=== PATIENT | male | born 1960 | race Caucasian/White ===

== ENCOUNTER 2021-11-08 05:12 | Inpatient (IN) ==
--- NOTE | 2021-11-07 11:10 | Anesthesiology Consultation ---
Date of Service November 07, 2021 Assessment & Plan (1) Encounter for pre-operative examination: - Pt requiring admission post-operatively. Plan for recheck with [facility] [employer] AM DOS due to possibility that patient may have a roommate. OR aware. [employer] order placed. - COVID screening: Per assessment on 11/07: No known COVID-19 positive contacts or current COVID-19 related symptoms. Travel screen negative. Patient vaccinated. Preop Covid test done 11/06 ([place]) is negative (surgeon did write letter of medical necessity indicating need for surgery to proceed as scheduled if unable to have preop Covid testing done but patient did end up having preop Covid test 11/06 which was negative). - Preop testing: Multiple attempts to inquire from surgeon's office if preop testing obtained- no response. Patient denies recent labs/EKG during PAT RN interview today. Will order CBC, BMP, coags, EKG for AM DOS. Chart Review Chart Review: Acceptable Risk for Surgery (pending preop labs AM DOS) and Patient NOT seen in Pre Admission Testing History Surgery Operation Date: 11/08/21 07:15 Proposed Procedures p Right Ankle Open Reduction Internal Fixation Bimalleolar Fracture, Open Reduction and Internal Fixation Syndesmotic Disruption of Ankle - Jonathan Sky DO Height/Weight Height: 5 ft 11 in Weight: 90.718 kg Allergies Allergy/AdvReac Type Severity Reaction Status Date / Time No Known Allergies Allergy Verified 11/07/21 11:13 Medications Home Medications Medication Instructions Recorded Confirmed Last Taken allopurinol 100 mg tablet 100 mg PO BID 11/07/21 11/07/21 Unknown aspirin 81 mg capsule 81 mg PO QAM 11/07/21 11/07/21 Unknown atorvastatin 80 mg tablet 80 mg PO PM 11/07/21 11/07/21 Unknown baclofen 10 mg tablet 10 mg PO TID 11/07/21 11/07/21 Unknown cholecalciferol (vitamin D3) 25 25 mcg PO QAM 11/07/21 11/07/21 Unknown mcg (1,000 unit) tablet (Vitamin D3) clopidogrel 75 mg tablet (Plavix) 75 mg PO QAM 11/07/21 11/07/21 Unknown colchicine 0.6 mg capsule 0.6 mg PO DAILY PRN 11/07/21 11/07/21 Unknown cyanocobalamin (vitamin B-12) 2,500 mcg SUBLINGUAL QAM 11/07/21 11/07/21 Unknown 2,500 mcg sublingual tablet (Vitamin B-12) cyclosporine 0.05 % eye drops in a 1 drp OPHTHALMIC (EYE) Q12H 11/07/21 11/07/21 Unknown dropperette (Restasis) fluoxetine 20 mg capsule 20 mg PO QAM 11/07/21 11/07/21 Unknown folic acid 1 mg tablet 1 mg PO QAM 11/07/21 11/07/21 Unknown polyethylene glycol 3350 17 17 g PO BID 11/07/21 11/07/21 Unknown gram/dose oral powder (Miralax) Past Medical History Medical History Depression Fx ankle Right Reason for upcoming surgery Gout History of CVA (cerebrovascular accident) 2016 - residual right hemiplegia, uses WC Hyperlipemia Past Surgical History Surgical History History of ankle surgery right History of surgery on left wrist Hx of hemorrhoidectomy Social History Smoking Status: Never smoker Do You Dip or Chew Tobacco: No Hx Alcohol Use: Yes Alcohol type: beer alcohol intake frequency: a few times a month Hx Substance Use: No substance use type: does not use
--- NOTE | 2021-11-07 17:08 | History & Physical Report ---
Date of Service November 07, 2021 Assessment & Plan (1) Bimalleolar fracture of right ankle: Plan: Schedule a right ankle ORIF bimalleolar fracture, possible ORIF syndesmotic disruption for 11/08/2021. All potential risks, benefits, complications, alternatives, and rehab have been discussed with the patient and his family and they wish to proceed. Will restart Plavix and aspirin postop for DVT prophylaxis. History of Present Illness Chief Complaint: Right ankle pain Primary Care Provider: Clarisse Santos This is a patient with a history of a CVA who sustained a fall in April of last year and had a fracture of his right lateral malleolus. He was treated conservatively and seems to have progressed well. He sustained another fall earlier this month and had pain within the right ankle. X-rays noted a bimalleolar ankle fracture. It was uncertain if the lateral malleolus fracture was a refracture or a persistent fracture. A CT scan was ordered. The patient is now being set up for surgical treatment. Allergies Allergy/AdvReac Type Severity Reaction Status Date / Time No Known Allergies Allergy Verified 11/07/21 11:13 Home Medications Medication Instructions Recorded Confirmed Type allopurinol 100 mg tablet 100 mg PO BID 11/07/21 11/07/21 History aspirin 81 mg capsule 81 mg PO QAM 11/07/21 11/07/21 History atorvastatin 80 mg tablet 80 mg PO PM 11/07/21 11/07/21 History baclofen 10 mg tablet 10 mg PO TID 11/07/21 11/07/21 History cholecalciferol (vitamin D3) 25 25 mcg PO QAM 11/07/21 11/07/21 History mcg (1,000 unit) tablet (Vitamin D3) clopidogrel 75 mg tablet (Plavix) 75 mg PO QAM 11/07/21 11/07/21 History colchicine 0.6 mg capsule 0.6 mg PO DAILY PRN 11/07/21 11/07/21 History cyanocobalamin (vitamin B-12) 2,500 mcg SUBLINGUAL QAM 11/07/21 11/07/21 History 2,500 mcg sublingual tablet (Vitamin B-12) cyclosporine 0.05 % eye drops in a 1 drp OPHTHALMIC (EYE) Q12H 11/07/21 11/07/21 History dropperette (Restasis) fluoxetine 20 mg capsule 20 mg PO QAM 11/07/21 11/07/21 History folic acid 1 mg tablet 1 mg PO QAM 11/07/21 11/07/21 History polyethylene glycol 3350 17 17 g PO BID 11/07/21 11/07/21 History gram/dose oral powder (Miralax) Past Med/Surg History Medical History Depression Fx ankle Right Reason for upcoming surgery Gout History of CVA (cerebrovascular accident) 2017 - residual right hemiplegia, uses WC Hyperlipemia Surgical History History of ankle surgery right History of surgery on left wrist Hx of hemorrhoidectomy Social History Smoking Status: Never smoker Second Hand Exposure: No; Hx Alcohol Use: Yes Alcohol type: beer Hx Substance Use: No Preferred Language: Khmer 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 Ability: Effective 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 Required: No Beliefs That Will Affect Care: None Current Living Situation: Family Feels Safe at Home: Yes Assistive Devices: Wheelchair Physical Exam Constitutional: well developed and well nourished; no acute distress ENMT: external ear and nose normal, oropharynx normal Neck: trachea midline Respiratory: normal respiratory effort, lungs clear to auscultation Cardiovascular: Rate/Rhythm: regular rate and regular rhythm Gastrointestinal (Abdomen): normal bowel sounds, soft, nontender, no hepatosplenomegaly Musculoskeletal: Ankle: + joint line tenderness (ankle) (Tender right medial and lateral malleoli); no skin erythema and no ecchymosis Skin: no rashes, warm and dry Neurologic: normal touch/pain/proprioception Psychiatric: A+Ox3, euthymic affect Speech: normal rate/rhythm/volume of speech Lymphatic: no cervical or axillary lymphadenopathy
[2021-11-08 06:20] LABS: Basophils # (auto) 0.04 K/uL (0-0.2); Basophils % (auto) 0.4 %; Eosinophils # (auto) 0.17 K/uL (0-0.5); Eosinophils % (auto) 1.5 %; Hematocrit (blood only) 51.5 % (42-52); Immature Granulocytes # (auto) 0.06 K/uL (0.00-0.02); Immature Granulocytes % (auto) 0.5 %; Lymphocytes # (auto) 2.23 K/uL (1.2-3.4); Lymphocytes % (auto) 20.3 %; Mean Corpuscular Hemoglobin 30.2 pg (25-34); Mean Corpuscular Volume 91.6 fL (80-100); Mean Platelet Volume 9.6 fL (7.4-10.4); Monocytes # (auto) 1.04 K/uL (0.11-0.59); Monocytes % (auto) 9.5 %; Neutrophils # (auto) 7.46 K/uL (1.4-6.5); Neutrophils % (auto) 67.8 %; Platelet Count 276 K/uL (130-400); RDW Coefficient of Variation 13.2 % (11.5-14.5); Red Blood Count 5.62 M/uL (4.7-6.1)
[2021-11-08 06:37] LABS: Partial Thromboplastin Time 28.2 Seconds (21.0-31.0); Prothrombin Time 10.9 Seconds (9.0-12.0)
[2021-11-08] MEDS ORDERED: ROPIVACAINE 0.5% 5 MG/ML 30 ML VIAL ONE ×2 (06:37→07:44)
[2021-11-08] MEDS ORDERED: MEPIVACAINE HCL 1.5% 30 ML VIAL ONE (06:40)
[2021-11-08 06:49] LABS: BUN Creatinine Ratio 15.9 (10-20); Calcium 9.1 mg/dl (8.5-10.1); Creatinine Clr Calc Pharmacy 105.9 ml/min; Est GFR (African American) 108.2 ml/min; Est GFR (Non-African American) 93.4 ml/min
[2021-11-08] MEDS ORDERED: fentaNYL citrate 100 MCG/2 ML VIAL ONE (06:49)
[2021-11-08] MEDS ORDERED: MIDAZOLAM HCL 1 MG/ML 2ML VIAL ONE (06:49)
[2021-11-08] MEDS ORDERED: PROPOFOL IV EMULSION 10 MG/ML 20 ML VIAL IV ONE (06:50)
[2021-11-08] MEDS ORDERED: SUCCINYLCHOLINE CHLORIDE 20 MG/ML 10 ML VIAL IV ONE (06:57)
[2021-11-08] MEDS ORDERED: EPINEPHrine INJ 1 MG/ML AMP ONE ×2 (07:02→07:12)
[2021-11-08] MEDS ORDERED: BUPIVACAINE 0.5 % 5 MG/1 ML MPF 30ML VIAL ONE (07:02)
[2021-11-08] MEDS ORDERED: fentaNYL citrate 100 MCG/2 ML VIAL IV PRN (07:17)
[2021-11-08] MEDS ORDERED: HYDROmorphone INJ 1 MG/ML SYRINGE IV PRN (07:17)
[2021-11-08] MEDS ORDERED: ATROPINE SULFATE 0.1 MG/ML 10ML SYR IV PRN (07:17)
[2021-11-08] MEDS ORDERED: ONDANSETRON INJ 2 MG/ML 2 ML VIAL IV PRN ×2 (07:17→09:40)
[2021-11-08] MEDS ORDERED: ePHEDrine sulfate 50 MG/ML AMP IV PRN (07:17)
[2021-11-08] MEDS ORDERED: ceFAZolin 2,000 MG/15 ML IV PUSH IV ONE (07:26)
--- NOTE | 2021-11-08 07:27 | History & Physical Bridge Note ---
Date of Service November 08, 2021 History & Physical Bridge Note I have examined the patient, reviewed the History & Physical and in the interval since the performance of the History & Physical I have noted the following changes of clinical significance: no changes noted
[2021-11-08] MEDS ORDERED: LIDOCAINE 2% 2 ML VIAL/AMP(20MG/ML) INFIL ONE (08:35)
--- NOTE | 2021-11-08 09:28 | Post Operative Brief Note ---
Immediate Post Op Note v1 Date of Surgery November 08, 2021 Pre & Post Diagnosis Operation Date: 11/08/21 07:15 Pre-Op Diagnosis: Closed displaced right bimalleolar ankle fracture Post-Op Diagnosis: Closed displaced right bimalleolar ankle fracture, arthrofibrosis right ankle I identified the patient and participated in the time-out.: Yes Procedure Operation Date: 11/08/21 07:15 Actual Procedures p Right Ankle Open Reduction Internal Fixation Bimalleolar Fracture, arthrotomy and debridement fibrosis of right ankle, stress views under fluoroscopy right ankle (Right) - Jonathan Sky DO Surgeon Jonathan Sky DO Sports Management Intern King Shah PA-C Estimated Blood Loss 2 Findings Consistent with Post-Op Diagnosis Anesthesia Type General Regional Complications none Disposition Accompanied Patient To Recovery: No Overlapping Procedure I was present for: the critical portions of procedure. I was immediately available: during the entire case.
--- NOTE | 2021-11-08 09:33 | Fluoroscopy Report ---
FL ankle RT 2V CLINICAL HISTORY: RT ORIF ANKLE.BIMALLEOLAR FX TECHNIQUE: 2 views were obtained with the C-arm in the OR with the above procedure. Total fluoroscopy time was 18.3 seconds. Total skin dose was 0.52 mGy. Comparison: None available at the time of this dictation. FINDINGS/IMPRESSION: Intraoperative images were obtained of right ankle open reduction internal fixat ion. Please correlate with intraoperative fluoroscopy and operative report. ACT 112: Negative or not required by law. Electronically signed by: Rashad Pollock M.D. 11/08/2021 9:32 AM
[2021-11-08] MEDS ORDERED: oxyCODONE HCL IR 5 MG TAB (IMMEDIATE RELEASE) PO PRN ×2 (09:40)
[2021-11-08] MEDS ORDERED: ACETAMINOPHEN 500 MG TAB PO PRN (09:40)
[2021-11-08] MEDS ORDERED: HYDROmorphone INJ 0.5 MG/0.5 ML SYR IV PRN (09:40)
--- NOTE | 2021-11-08 10:45 | Anesthesiology Progress Note ---
Date of Service November 08, 2021 Anesthesia Post Procedure Vital Signs Vital Signs: Temp Pulse Pulse Resp BP Pulse Ox 11/08/21 10:40 36.4 C L 62 13 105/66 96 11/08/21 10:30 36.4 C L 59 L 15 129/81 96 11/08/21 10:20 36.4 C L 62 16 118/62 97 11/08/21 10:10 64 17 126/85 94 11/08/21 10:00 68 19 134/81 95 11/08/21 09:35 36.0 C L 59 L 13 124/88 94 11/08/21 05:41 36.6 C 58 L 20 136/89 97 Transfer of Care Handoff Completed per policy Notes Mental Status: alert / awake / arousable and participated in evaluation Patient Amnestic to Procedure: Yes Nausea / Vomiting: adequately controlled Pain: adequately controlled Airway Patency, RR, SpO2: stable & adequate BP & HR: stable & adequate Hydration State: stable & adequate Anesthetic Complications: no major complications apparent and Pt Satisfied with anesthetic care
--- NOTE | 2021-11-08 11:36 | Electrocardiogram Report ---
Test Reason : Blood Pressure : / mmHG Vent. Rate : 055 BPM Atrial Rate : 055 BPM P-R Int : 164 ms QRS Dur : 090 ms QT Int : 414 ms P-R-T Axes : 010 -23 027 degrees QTc Int : 396 ms Poor data quality, interpretation may be adversely affected Sinus bradycardia Otherwise normal ECG No previous ECGs available Confirmed by Vito Patterson ([id number]) on 11/08/2021 11:35:26 AM Referred By: Jonathan Sky Confirmed By:Filemon Patterson
[2021-11-08] MEDS ORDERED: NALOXONE HCL 0.4 MG/1 ML VIAL/CARP IV PRN (13:35)
[2021-11-08] MEDS ORDERED: MAGNESIUM HYDROXIDE SUSP 30 ML UDC PO PRN (13:35)
[2021-11-08] MEDS ORDERED: bisacodyL 10 MG SUPP PR PRN (13:35)
[2021-11-08] MEDS ORDERED: METOCLOPRAMIDE HCL INJ 5 MG/ML 2 ML VIAL IV PRN (13:35)
[2021-11-08] MEDS ORDERED: NON-FORMULARY MEDICATION (Cyclosporine [Restasis] 0.05 % Dropperette) OP SCH (13:35)
[2021-11-08] MEDS ORDERED: allopurinoL 100 MG TAB PO PRN (13:35)
[2021-11-08] MEDS: SODIUM CHLORIDE 0.9% 1000ML 1,000 ML IV SCH (13:47)
[2021-11-08] MEDS: MISSING Provider Signature on ORDER(s) SCH ×2 (16:43→16:44)
--- NOTE | 2021-11-08 18:59 | Operative Report (OR) ---
DATE OF PROCEDURE: 11/08/2021. PREOPERATIVE DIAGNOSES: 1. Right ankle displaced bimalleolar fracture. 2. Fibrosis of the ankle joint. POSTOPERATIVE DIAGNOSES: 1. Right ankle displaced bimalleolar fracture. 2. Fibrosis of the ankle joint. PROCEDURE: 1. Open reduction and internal fixation of right ankle bimalleolar displaced fracture. 2. Stress views with fluoroscopy of the right ankle. 3. Arthrotomy of the right ankle with debridement fibrosis. SURGEON: Jonathan Sky DO. DIGITAL ADVERTISING ANALYST: King Shah PA-C who was present for patient positioning, sterile prep and drape, m anagement of retractors and instruments. He was present through the critical portions of the case inc luding wound closure, application of sterile dressing and transport of the patient to recovery. ANESTHESIA: General, regional. SPECIMENS: None. DRAINS: None. COMPLICATIONS: None. BLOOD LOSS: 2 mL. PERTINENT HISTORY: This is a 61-year-old gentleman who had suffered a prior stroke with persistent h emiplegia. The patient sustained an injury to his right ankle approximately 04[facility]2021, [facility] and then when ambulating and transferring, he sustained a repeat injury to the ankle. Seen i n clinic, had radiographs and eventually had CT scans noting a refracture of his right ankle at the s ite where prior fracture had occurred, noted to have displacement of the lateral malleolus and medial malleolus without any evidence of syndesmotic disruption. The patient was then scheduled for surger y as indicated. All potential risks, benefits, complications, alternatives, rehab potential for incomplete list, need for further surgery, DVT, PE, , persistent pain, swelling, scarring, weakness, neurovascular in jury, wound complications, hardware failure, nonunion, malunion, bone fracture were discussed with e patient. The patient decided to proceed with procedure as indicated. DESCRIPTION OF PROCEDURE: After regional anesthetic was administered, the patient was taken to the o perative suite and placed supine on the operating room table. After review of consent, identificatio n of proper site, the patient was anesthetized, LMA was placed. Tourniquet was placed high on the [facility] thigh over cast padding. The right lower extremity was then sterilely prepped and draped in the usual fashion, elevated and exsanguinated with an Esmarch bandage and tourniquet inflated to 325 mmHg . Next, a 15 blade scalpel was used to make an incision over the lateral malleolus extending proximally . The 15 blade scalpel incision was then deepened through the skin and subcutaneous tissue. Meticul ous hemostasis was achieved with electrocautery. Full thickness skin flaps were retracted with Antonio rakes. Sensory cutaneous nerves were retracted and protected. The deep peroneal nerve was retracted and protected. Incision was made over the periosteum, which was noted to be thickened from prior fra cture. Periosteum was elevated superiorly and inferiorly revealing the fracture. The fracture was t hen debrided using a dental pick and copious sterile saline irrigation until clear. Next, the fracture fragment was then reduced with a bone reduction forceps x2 and pinned in place wit h 2 small K wires in live fluoroscopic assistance to achieve anatomic reduction. Next, a [employer]ynthe[employer] dis vinayak fibular locking periarticular fibular plate was then contoured with bending irons and then fixed distally, compressed across the fracture with a bone clamp and then fixed proximally with multiple lo cking screws to achieve anatomic alignment, fixation and stabilization with plate and screws. This w as confirmed with C-arm fluoroscopy. Next, a 15 blade scalpel was used to make a curvilinear incisio n over the medial malleolus. The skin incision was then deepened through the skin and subcutaneous t issue. Meticulous hemostasis was achieved with electrocautery. Full thickness skin flaps were devel oped and retracted with Antonio rakes. The saphenous vein was retracted and protected with a Antonio rake and then the periosteum was then incised. The fracture was then manipulated, irrigated and debrided with a dental pick to get [id number] apposition and remove any fibrous clot. Next, a small arthrotomy was made in the anteromedial ankle to confirm removal of all immature clot. There was noted to be fibrosis within the joint. Debridement of the joint was then performed with f orceps and pituitary rongeur. Next, the ankle joint was irrigated until clear and a single stitch wa s placed 2-0 Vicryl. Next, the medial malleolar fracture was then provisionally fixed in anatomic al ignment under live fluoroscopic assistance with bone forceps x2 and then two 4.0 cannulated 44 mm amando g thread cannulated screws were then placed stabilizing the medial malleolus in anatomic alignment an d fixation under live fluoroscopic assistance. The site was then irrigated with sterile saline until clear. The deep capsule and periosteum was closed using 2-0 Vicryl, the dermis was closed using bur ied 3-0 Vicryl. Skin was closed with nylon. The deep tissue was closed laterally with 2-0 Vicryl, the dermis was closed buried 3-0 Vicryl, skin c losed using 4-0 nylon. A stress view was performed with fluoroscopy of the right ankle and noted to be stable; therefore no need to consider a syndesmotic screw. Next, a sterile compressive dressing w as applied, overwrapped with a bulky Brian Otero plaster splint, placed in neutral dorsiflexion. Th e tourniquet was released. The patient was awakened and taken to recovery in stable condition. Job ID: [id number]
[2021-11-08] MEDS: ATORVASTATIN 40 MG TAB PO SCH (20:49)
[2021-11-08] MEDS: BACLOFEN 10 MG TAB PO SCH (20:49)
[2021-11-08] MEDS: ceFAZolin 2000MG 2,000 MG/15 ML SYR IV SCH (20:49)
[2021-11-08] MEDS: POLYETHYLENE (MIRALAX) 17 GM PACK PO SCH (20:50)
[2021-11-08] MEDS: *RESTASIS*ORDER AWAITING ACTION SCH (23:57)
[2021-11-09] MEDS: SODIUM CHLORIDE 0.9% 1000ML 1,000 ML IV SCH (04:42)
[2021-11-09] MEDS: ceFAZolin 2000MG 2,000 MG/15 ML SYR IV SCH (04:52)
[2021-11-09 07:22] LABS: Hemoglobin 15.5 g/dL (14.0-18.0); Mean Corpuscular Hemoglobin 30.5 pg (25-34); Mean Corpuscular Volume 92.3 fL (80-100); Mean Platelet Volume 9.6 fL (7.4-10.4); Platelet Count 232 K/uL (130-400); RDW Coefficient of Variation 13.2 % (11.5-14.5); RDW Standard Deviation 44.6 fL (36.4-46.3); Red Blood Count 5.09 M/uL (4.7-6.1)
[2021-11-09 07:45] LABS: BUN Creatinine Ratio 14.4 (10-20); Calcium 8.3 mg/dl (8.5-10.1); Est GFR (African American) 83.2 ml/min; Est GFR (Non-African American) 71.8 ml/min; Potassium 4.2 mmol/L (3.5-5.1)
[2021-11-09] MEDS: FLUoxetine HCL 20 MG CAP PO SCH (07:55)
[2021-11-09] MEDS: ASPIRIN 81 MG ECTAB PO SCH (07:55)
[2021-11-09] MEDS: *RESTASIS*ORDER AWAITING ACTION SCH ×2 (07:55→13:41)
[2021-11-09] MEDS: MULTIVITAMIN TAB PO SCH (07:55)
[2021-11-09] MEDS: BACLOFEN 10 MG TAB PO SCH ×3 (07:55→20:03)
[2021-11-09] MEDS: FOLIC ACID 1 MG TAB PO SCH (07:55)
[2021-11-09] MEDS: CHOLECALCIFEROL 1,000 UNITS 25 MCG TAB PO SCH (07:56)
[2021-11-09] MEDS: POLYETHYLENE (MIRALAX) 17 GM PACK PO SCH ×2 (07:56→20:03)
[2021-11-09] MEDS: CLOPIDOGREL BISULFATE 75 MG TAB PO SCH (07:56)
[2021-11-09] MEDS: CYANOCOBALAMIN (B-12) 2,500 MCG TABLET SL SCH (07:56)
--- NOTE | 2021-11-09 08:33 | Orthopedic Progress Note ---
Date of Service November 09, 2021 Assessment & Plan (1) Bimalleolar fracture of right ankle: Plan: POD 1 s/p ORIF Right [place] ankle fx PT/OT protocols; NWB on RLE; h/o hemiplegia from CVA; DVT prophylaxis - Plavix; Aspirin; SCD's Pain management as written. DC planning - Pt will require Rehab / SNF facility Admission and Anticipated Discharge Date Admission Date: November 08, 2021 Subjective POD 1 Pt sitting up in bed. Currently getting VS taken by nursing. No complaints. Pain controlled. Still having some numbness in the foot. Physical Exam Physical Exam: Splint/Dressing C/D/I. Cap refill < 2 seconds. Moving toes well. Continues with some decreased sensation.(h/o right sided hemiplegia due to CVA) Results & Data ([facility]) Vital Signs (Past 12 Hours) Vital Signs Temp Pulse Resp BP Pulse Ox 11/09/21 03:50 36.6 C 67 14 102/56 L 93 11/08/21 21:30 37.1 C 71 14 111/76 96
[2021-11-09] MEDS: ATORVASTATIN 40 MG TAB PO SCH (20:03)
[2021-11-10] MEDS: *RESTASIS*ORDER AWAITING ACTION SCH ×3 (00:22→14:21)
[2021-11-10] MEDS: CLOPIDOGREL BISULFATE 75 MG TAB PO SCH (07:29)
[2021-11-10] MEDS: CHOLECALCIFEROL 1,000 UNITS 25 MCG TAB PO SCH (07:29)
[2021-11-10] MEDS: MULTIVITAMIN TAB PO SCH (07:29)
[2021-11-10] MEDS: ASPIRIN 81 MG ECTAB PO SCH (07:29)
[2021-11-10] MEDS: FOLIC ACID 1 MG TAB PO SCH (07:29)
[2021-11-10] MEDS: POLYETHYLENE (MIRALAX) 17 GM PACK PO SCH ×2 (07:30→20:34)
[2021-11-10] MEDS: CYANOCOBALAMIN (B-12) 2,500 MCG TABLET SL SCH (07:30)
[2021-11-10] MEDS: FLUoxetine HCL 20 MG CAP PO SCH (07:30)
[2021-11-10] MEDS: BACLOFEN 10 MG TAB PO SCH ×3 (07:31→20:33)
--- NOTE | 2021-11-10 11:43 | Orthopedic Progress Note ---
Date of Service November 10, 2021 Assessment & Plan (1) Bimalleolar fracture of right ankle: Plan: POD 2 s/p ORIF Right [place] ankle fx PT/OT protocols; NWB on RLE; h/o hemiplegia from CVA; DVT prophylaxis - Plavix; Aspirin; SCD's Pain management as written. DC planning - Pt will require Rehab / SNF facility. Awaiting placement. Admission and Anticipated Discharge Date Admission Date: November 08, 2021 Subjective POD 2 Pt sleeping upon arrival in room. Easily awoken. No complaints today. Pain controlled. Physical Exam Physical Exam: Essentially no changes. Splint intact. Toes pink / warm. Toes mobile. h/o right hemiplegia due to previous CVA. Results & Data ([facility]) Vital Signs (Past 12 Hours) Vital Signs Temp Pulse Resp BP Pulse Ox 11/10/21 08:13 36.6 C 61 18 110/70 94
[2021-11-10] MEDS: ATORVASTATIN 40 MG TAB PO SCH (20:33)
[2021-11-11] MEDS: *RESTASIS*ORDER AWAITING ACTION SCH ×4 (00:28→20:38)
--- NOTE | 2021-11-11 07:14 | Orthopedic Progress Note ---
Date of Service November 11, 2021 Assessment & Plan (1) Bimalleolar fracture of right ankle: Plan: POD 3 s/p ORIF Right [place] ankle fx PT/OT protocols; NWB on RLE; h/o hemiplegia from CVA; DVT prophylaxis - Plavix; Aspirin; SCD's Pain management as written. DC planning - Pt will require Rehab / SNF facility. Awaiting placement. Admission and Anticipated Discharge Date Admission Date: November 08, 2021 Subjective POD 2 Pt sleeping upon arrival in room. Easily awoken. No complaints today. Pain controlled. Review of Systems Review of Systems: All systems reviewed & are unremarkable except as noted in Subjective Physical Exam Physical Exam: Dressing/splint is c/d/i. Toes mobile. No calf tenderness. Distally decreased sensation at baseline. Results & Data ([facility]) Vital Signs (Past 12 Hours) Vital Signs Temp Pulse Resp BP Pulse Ox 11/10/21 23:28 36.6 C 60 18 121/68 94
[2021-11-11] MEDS: CLOPIDOGREL BISULFATE 75 MG TAB PO SCH (08:50)
[2021-11-11] MEDS: POLYETHYLENE (MIRALAX) 17 GM PACK PO SCH ×2 (08:50→20:35)
[2021-11-11] MEDS: CYANOCOBALAMIN (B-12) 2,500 MCG TABLET SL SCH (08:50)
[2021-11-11] MEDS: FLUoxetine HCL 20 MG CAP PO SCH (08:53)
[2021-11-11] MEDS: BACLOFEN 10 MG TAB PO SCH ×3 (08:53→20:38)
[2021-11-11] MEDS: FOLIC ACID 1 MG TAB PO SCH (08:53)
[2021-11-11] MEDS: ASPIRIN 81 MG ECTAB PO SCH (08:53)
[2021-11-11] MEDS: CHOLECALCIFEROL 1,000 UNITS 25 MCG TAB PO SCH (08:53)
[2021-11-11] MEDS: MULTIVITAMIN TAB PO SCH (08:53)
[2021-11-11] MEDS: ATORVASTATIN 40 MG TAB PO SCH (20:34)
[2021-11-12] MEDS: *RESTASIS*ORDER AWAITING ACTION SCH ×3 (07:02→21:02)
[2021-11-12] MEDS: MULTIVITAMIN TAB PO SCH (08:28)
[2021-11-12] MEDS: CYANOCOBALAMIN (B-12) 2,500 MCG TABLET SL SCH (08:28)
[2021-11-12] MEDS: CHOLECALCIFEROL 1,000 UNITS 25 MCG TAB PO SCH (08:28)
[2021-11-12] MEDS: FOLIC ACID 1 MG TAB PO SCH (08:28)
[2021-11-12] MEDS: ASPIRIN 81 MG ECTAB PO SCH (08:28)
[2021-11-12] MEDS: CLOPIDOGREL BISULFATE 75 MG TAB PO SCH (08:28)
[2021-11-12] MEDS: FLUoxetine HCL 20 MG CAP PO SCH (08:28)
[2021-11-12] MEDS: POLYETHYLENE (MIRALAX) 17 GM PACK PO SCH ×2 (08:29→20:10)
[2021-11-12] MEDS: BACLOFEN 10 MG TAB PO SCH ×3 (08:33→20:10)
--- NOTE | 2021-11-12 10:00 | Orthopedic Progress Note ---
Date of Service November 12, 2021 Assessment & Plan (1) Bimalleolar fracture of right ankle: Plan: POD 4 s/p ORIF Right [place] ankle fx PT/OT protocols; NWB on RLE; h/o hemiplegia from CVA; DVT prophylaxis - Plavix; Aspirin; SCD's Pain management as written. DC planning - Pt will require Rehab / SNF facility. Awaiting placement. d/c today if approved Admission and Anticipated Discharge Date Admission Date: November 08, 2021 Subjective POD 4 Pt has no complaints, states no pain today. denies fever or chills, no CP or SOB Physical Exam Physical Exam: Vital Signs Temp 36.3 C L 11/12/21 07:57 Pulse 51 L 11/12/21 07:57 Resp 16 11/12/21 07:57 BP 102/63 11/12/21 07:57 Pulse Ox 97 11/12/21 07:57 Intake & Output 11/11/21 11/12/21 11/12/21 18:59 06:59 18:59 Intake Total 200 / 200 Output Total 950 / 950 300 / 300 Balance -750 / -750 -300 / -300 Intake: Oral 200 / 200 Output: Urine 950 / 950 300 / 300 Musculoskeletal: Right lower extremity: Dressing and splint is c/d/i. Toes are mobile. No calf tenderness. Distally decreased sensation at baseline. Results & Data ([facility]) Vital Signs (Past 12 Hours) Vital Signs Temp Pulse Resp BP Pulse Ox 11/12/21 07:57 36.3 C L 51 L 16 102/63 97
[2021-11-12] MEDS: ATORVASTATIN 40 MG TAB PO SCH (20:11)
[2021-11-13] MEDS: *RESTASIS*ORDER AWAITING ACTION SCH ×3 (08:04→23:13)
[2021-11-13] MEDS: POLYETHYLENE (MIRALAX) 17 GM PACK PO SCH ×2 (08:05→20:37)
[2021-11-13] MEDS: FLUoxetine HCL 20 MG CAP PO SCH (08:05)
[2021-11-13] MEDS: BACLOFEN 10 MG TAB PO SCH ×3 (08:05→20:37)
[2021-11-13] MEDS: CHOLECALCIFEROL 1,000 UNITS 25 MCG TAB PO SCH (08:05)
[2021-11-13] MEDS: ASPIRIN 81 MG ECTAB PO SCH (08:05)
[2021-11-13] MEDS: CLOPIDOGREL BISULFATE 75 MG TAB PO SCH (08:05)
[2021-11-13] MEDS: MULTIVITAMIN TAB PO SCH (08:06)
[2021-11-13] MEDS: FOLIC ACID 1 MG TAB PO SCH (08:06)
[2021-11-13] MEDS: CYANOCOBALAMIN (B-12) 2,500 MCG TABLET SL SCH (08:06)
--- NOTE | 2021-11-13 09:42 | Orthopedic Progress Note ---
Date of Service November 13, 2021 Assessment & Plan (1) Bimalleolar fracture of right ankle: Plan: POD 5 s/p ORIF Right [place] ankle fx PT/OT protocols; NWB on RLE; h/o hemiplegia from CVA; DVT prophylaxis - Plavix; Aspirin; SCD's Pain management as written. DC planning - Pt will require SNF facility. CM working on placement. Waiting........... Admission and Anticipated Discharge Date Admission Date: November 08, 2021 Subjective POD 5 No new complaints. Just finished working with PT. States it's difficult for him to maneuver but he continues to try. Pain controlled. Physical Exam Physical Exam: Splint/Dressing is C/D/I. Toes mobile, Cap refill < 2 seconds. Results & Data ([facility]) Vital Signs (Past 12 Hours) Vital Signs Temp Pulse Resp BP Pulse Ox 11/13/21 07:33 36.3 C L 58 L 18 117/76 96 11/12/21 23:40 36.6 C 63 16 95/68 L 94
[2021-11-13] MEDS: ATORVASTATIN 40 MG TAB PO SCH (20:37)
[2021-11-14] MEDS: *RESTASIS*ORDER AWAITING ACTION SCH ×3 (07:12→22:35)
[2021-11-14] MEDS: MULTIVITAMIN TAB PO SCH (08:25)
[2021-11-14] MEDS: POLYETHYLENE (MIRALAX) 17 GM PACK PO SCH ×3 (08:25→21:04)
[2021-11-14] MEDS: FOLIC ACID 1 MG TAB PO SCH (08:25)
[2021-11-14] MEDS: BACLOFEN 10 MG TAB PO SCH ×3 (08:25→21:03)
[2021-11-14] MEDS: ASPIRIN 81 MG ECTAB PO SCH (08:26)
[2021-11-14] MEDS: CLOPIDOGREL BISULFATE 75 MG TAB PO SCH (08:26)
[2021-11-14] MEDS: FLUoxetine HCL 20 MG CAP PO SCH (08:26)
[2021-11-14] MEDS: CHOLECALCIFEROL 1,000 UNITS 25 MCG TAB PO SCH (08:26)
[2021-11-14] MEDS: CYANOCOBALAMIN (B-12) 2,500 MCG TABLET SL SCH (08:26)
--- NOTE | 2021-11-14 09:00 | Orthopedic Progress Note ---
Date of Service November 14, 2021 Assessment & Plan (1) Bimalleolar fracture of right ankle: Plan: POD 6 s/p ORIF Right [place] ankle fx PT/OT protocols; NWB on RLE; h/o hemiplegia from CVA; DVT prophylaxis - Plavix; Aspirin; SCD's Pain management as written. DC planning - Pt will require SNF facility. CM working on placement. Waiting........... Admission and Anticipated Discharge Date Admission Date: November 08, 2021 Subjective Postop day 6 Patient awake and alert. No complaints this morning. Pain controlled. Physical Exam Physical Exam: Jaden is clean, dry, and intact. Toes are mobile. Mona and warm. Cap refills less than 2 seconds. Results & Data ([facility]) Vital Signs (Past 12 Hours) Vital Signs Temp Pulse Resp BP BP Pulse Ox 11/14/21 07:12 36.3 C L 56 L 20 107/67 94 11/13/21 22:30 36.7 C 60 18 101/59 L 96
[2021-11-14] MEDS ORDERED: COVID-19 VACC, TRIS(PFIZER)/PF 30 MCG/0.3 ML VIAL IM ONE (10:05)
[2021-11-14] MEDS: ATORVASTATIN 40 MG TAB PO SCH (21:03)
--- NOTE | 2021-11-15 07:31 | Orthopedic Progress Note ---
Date of Service November 15, 2021 Assessment & Plan (1) Bimalleolar fracture of right ankle: Plan: POD 7 s/p ORIF Right [place] ankle fx PT/OT protocols; NWB on RLE; h/o hemiplegia from CVA; DVT prophylaxis - Plavix; Aspirin; SCD's Pain management as written. DC planning - Pt will require SNF facility. CM working on placement Admission and Anticipated Discharge Date Admission Date: November 08, 2021 Subjective Postop day 7 Patient awake and alert. No complaints this morning. Pain controlled. Physical Exam Physical Exam: Splint is clean, dry, and intact. Toes are mobile. [place] and warm. Cap refills less than 2 seconds. Results & Data ([facility]) Vital Signs (Past 12 Hours) Vital Signs Temp Pulse Resp BP BP Pulse Ox 11/15/21 07:03 36.5 C 53 L 16 113/67 96 11/14/21 22:56 36.3 C L 61 16 102/65 96
[2021-11-15] MEDS: *RESTASIS*ORDER AWAITING ACTION SCH ×2 (08:04→18:28)
[2021-11-15] MEDS: ASPIRIN 81 MG ECTAB PO SCH (08:20)
[2021-11-15] MEDS: BACLOFEN 10 MG TAB PO SCH ×3 (08:20→20:11)
[2021-11-15] MEDS: CHOLECALCIFEROL 1,000 UNITS 25 MCG TAB PO SCH (08:20)
[2021-11-15] MEDS: FLUoxetine HCL 20 MG CAP PO SCH (08:21)
[2021-11-15] MEDS: CLOPIDOGREL BISULFATE 75 MG TAB PO SCH (08:21)
[2021-11-15] MEDS: FOLIC ACID 1 MG TAB PO SCH (08:22)
[2021-11-15] MEDS: POLYETHYLENE (MIRALAX) 17 GM PACK PO SCH ×2 (08:22→20:12)
[2021-11-15] MEDS: MULTIVITAMIN TAB PO SCH (08:22)
[2021-11-15] MEDS: CYANOCOBALAMIN (B-12) 2,500 MCG TABLET SL SCH (15:23)
[2021-11-15] MEDS: ATORVASTATIN 40 MG TAB PO SCH (20:11)
[2021-11-16] MEDS: *RESTASIS*ORDER AWAITING ACTION SCH ×3 (01:17→15:32)
[2021-11-16] MEDS: BACLOFEN 10 MG TAB PO SCH ×3 (08:07→20:31)
[2021-11-16] MEDS: FLUoxetine HCL 20 MG CAP PO SCH (08:07)
[2021-11-16] MEDS: ASPIRIN 81 MG ECTAB PO SCH (08:07)
[2021-11-16] MEDS: FOLIC ACID 1 MG TAB PO SCH (08:07)
[2021-11-16] MEDS: POLYETHYLENE (MIRALAX) 17 GM PACK PO SCH ×2 (08:07→20:30)
[2021-11-16] MEDS: MULTIVITAMIN TAB PO SCH (08:07)
[2021-11-16] MEDS: CLOPIDOGREL BISULFATE 75 MG TAB PO SCH (08:08)
[2021-11-16] MEDS: CHOLECALCIFEROL 1,000 UNITS 25 MCG TAB PO SCH (08:08)
[2021-11-16] MEDS: CYANOCOBALAMIN (B-12) 2,500 MCG TABLET SL SCH (08:08)
--- NOTE | 2021-11-16 08:53 | Orthopedic Progress Note ---
Date of Service November 16, 2021 Assessment & Plan (1) Bimalleolar fracture of right ankle: Plan: 61 yo male stable POD #8 s/p ORIF right ankle 1. Med management 2. DVT prophylaxis- ASA and Plavix, SCDs 3. PT/OT 4. D/C planning- d/c to [facility] 11/18 or 11/19 Admission and Anticipated Discharge Date Admission Date: November 08, 2021 Subjective Pt sitting bedside, denies complaints Physical Exam Physical Exam: Splint intact right lower leg Results & Data ([facility]) Vital Signs (Past 12 Hours) Vital Signs Temp Pulse Pulse Resp BP BP Pulse Ox 11/16/21 07:57 36.8 C 57 L 16 110/66 94 11/15/21 21:49 36.4 C L 55 L 16 101/58 L 91
[2021-11-16] MEDS: ATORVASTATIN 40 MG TAB PO SCH (20:31)
[2021-11-17] MEDS: *RESTASIS*ORDER AWAITING ACTION SCH ×3 (00:02→14:35)
[2021-11-17] MEDS: MULTIVITAMIN TAB PO SCH (09:17)
[2021-11-17] MEDS: FOLIC ACID 1 MG TAB PO SCH (09:17)
[2021-11-17] MEDS: POLYETHYLENE (MIRALAX) 17 GM PACK PO SCH ×2 (09:17→20:13)
[2021-11-17] MEDS: FLUoxetine HCL 20 MG CAP PO SCH (09:17)
[2021-11-17] MEDS: CYANOCOBALAMIN (B-12) 2,500 MCG TABLET SL SCH (09:18)
[2021-11-17] MEDS: BACLOFEN 10 MG TAB PO SCH ×3 (09:18→20:13)
[2021-11-17] MEDS: CHOLECALCIFEROL 1,000 UNITS 25 MCG TAB PO SCH (09:18)
[2021-11-17] MEDS: ASPIRIN 81 MG ECTAB PO SCH (09:19)
[2021-11-17] MEDS: CLOPIDOGREL BISULFATE 75 MG TAB PO SCH (09:20)
--- NOTE | 2021-11-17 09:56 | Orthopedic Progress Note ---
Date of Service November 17, 2021 Assessment & Plan (1) Bimalleolar fracture of right ankle: Plan: 61 yo male stable POD #9 s/p ORIF right ankle 1. Med management 2. DVT prophylaxis- ASA and Plavix, SCDs 3. PT/OT 4. D/C planning- d/c to [facility] to thursday/thursday Admission and Anticipated Discharge Date Admission Date: November 08, 2021 Subjective Pt lying in bed, no complaints Physical Exam Physical Exam: Splint intact right LE Results & Data ([facility]) Vital Signs (Past 12 Hours) Vital Signs Temp Pulse Resp BP Pulse Ox 11/17/21 05:58 36.5 C 57 L 18 109/74 96 11/16/21 22:24 36.6 C 59 L 16 94/47 L 94
[2021-11-17] MEDS: ATORVASTATIN 40 MG TAB PO SCH (20:13)
[2021-11-18] MEDS: BACLOFEN 10 MG TAB PO SCH ×2 (08:15→13:11)
[2021-11-18] MEDS: MULTIVITAMIN TAB PO SCH (08:16)
[2021-11-18] MEDS: FLUoxetine HCL 20 MG CAP PO SCH (08:16)
[2021-11-18] MEDS: *RESTASIS*ORDER AWAITING ACTION SCH ×2 (08:16)
[2021-11-18] MEDS: ASPIRIN 81 MG ECTAB PO SCH (08:16)
[2021-11-18] MEDS: CHOLECALCIFEROL 1,000 UNITS 25 MCG TAB PO SCH (08:16)
[2021-11-18] MEDS: CLOPIDOGREL BISULFATE 75 MG TAB PO SCH (08:16)
[2021-11-18] MEDS: CYANOCOBALAMIN (B-12) 2,500 MCG TABLET SL SCH (08:16)
[2021-11-18] MEDS: FOLIC ACID 1 MG TAB PO SCH (08:16)
[2021-11-18] MEDS: POLYETHYLENE (MIRALAX) 17 GM PACK PO SCH (08:17)
--- NOTE | 2021-11-19 11:25 | Discharge Summary ---
Date of Service November 19, 2021 Admission HPI Per Admitting Provider This is a patient with a history of a CVA who sustained a fall in April of last year and had a fracture of his right lateral malleolus. He was treated conservatively and seems to have progressed well. He sustained another fall earlier this month and had pain within the right ankle. X-rays noted a bimalleolar ankle fracture. It was uncertain if the lateral malleolus fracture was a refracture or a persistent fracture. A CT scan was ordered. The patient is now being set up for surgical treatment. Admission Exam Per Admitting Provider Physical Exam Constitutional: well developed and well nourished; no acute distress ENMT: external ear and nose normal, oropharynx normal Neck: trachea midline Respiratory: normal respiratory effort, lungs clear to auscultation Cardiovascular: Rate/Rhythm: regular rate and regular rhythm Gastrointestinal (Abdomen): normal bowel sounds, soft, nontender, no hepatosplenomegaly Musculoskeletal: Ankle: + joint line tenderness (ankle) (Tender right medial and lateral malleoli); no skin erythema and no ecchymosis Skin: no rashes, warm and dry Neurologic: normal touch/pain/proprioception Psychiatric: A+Ox3, euthymic affect Speech: normal rate/rhythm/volume of speech Lymphatic: no cervical or axillary lymphadenopathy Principal Diagnosis Right bimalleolar ankle fracture Discharge Data Allergies Allergy/AdvReac Type Severity Reaction Status Date / Time No Known Allergies Allergy Verified 11/08/21 05:45 Procedures Performed Operation Date: 11/08/21 07:15 Actual Procedures p Right Ankle Open Reduction Internal Fixation Bimalleolar Fracture, Open Reduction and Internal Fixation Syndesmotic Disruption of Ankle, Arthroscopy and debridement fibrosis of right ankle. (Right) - Jonathan Sky DO Ordered Studies 11/08/21 05:00 US - OR guided needle placemen Routine 11/08/21 07:15 FL ankle RT 2V Routine Hospital Course (1) Bimalleolar fracture of right ankle: Patient is a 61-year-old male who is admitted on the above-noted date had the above-noted surgery performed which he tolerated well. Due to the patient being in an assisted living situation, he was going to need placement for usp facility prior to returning. He was admitted post surgery and was started on PT and OT protocols as able. Over the next several days, the patient remained stable postoperatively. Dressings remain clean, dry, and intact. Toes remain mobile and he had good capillary refill. Patient was to maintain nonweightbearing status on the right lower extremity and physical therapy work with him from bed to chair. Case management was consulted who facilitate usp facility placement this took multiple days to find a facility however by 11/17/2021, [facility] agreed to take the patient on their service. Patient continued to remain medically stable as well as orthopedically stable and was thusly discharged to [facility] on 11/18/2021. Total Time Total Time Spent Total Time Spent (In Minutes): 10 Discharge Plan Discharge Items Patient Disposition: Transfer Custodial Fac Reason For Visit: Closed Nondisplaced Fracture of Medial Malleolus Discharge Diagnosis: Right bimalleolar ankle fracture Condition on Discharge: Good Activity: Per Instructions section Weightbearing: Right non-weightbearing Weightbearing Comment: use walker or crutches for ambulation Non-emergency contact: Surgeon Call non-emergency contact if: your pain is not controlled, your temperature is above 101.5, your wound has increased redness and your wound has increased drainage Follow-up/Referrals: Jonathan Sky DO [Surgeon] - (Follow up with Dr. Syk in 10-14 days from the day of surgery for your first wound check.) Clarisse Santos D.O. [Primary Care Provider] - Diet: Regular Addtl Attending Provider Instructions: ACTIVITY RECOMMENDATIONS: * YOU ARE TO BE NON WEIGHTBEARING ON THE RIGHT FOOT SPECIAL CARE INSTRUCTIONS: * Some drainage onto the dressing is normal and is no cause for alarm. * Some swelling is natural especially after walking. When resting, keep your foot elevated above the level of your heart. * Call the doctor's office at if you notice increased drainage, fever over 101 degrees F. or severe constant pain. BANDAGE: * Leave bandage/cast in place unless otherwise directed. * Keep bandage/cast dry at all times. FOLLOW UP VISIT: If appointment is not already scheduled: Please call [facility] to make a follow-up appointment in 10- 14 days from the day of your surgery at . Pending Studies at Discharge: No Stand-Alone Forms: My [facility] Skilled Items Patient informed of condition?: Yes DNR: No Discharge Level of Care: Skilled Communicable Disease: No Discharge Prognosis: Stable Lines: None Urinary Catheter: No Medications and DC Order Prescriptions: New polyethylene glycol 3350 [Miralax] 17 gram powder in packet 17 g PO DAILY PRN (Reason: constipation) Qty: 5 RF: 0 acetaminophen 500 mg capsule 1,000 mg PO Q8H 14 Days Qty: 84 RF: 0 oxycodone 5 mg Tablet 5 mg PO Q4H MDD 6 PRN (Reason: pain) Qty: 30 RF: 0 Continued atorvastatin 80 mg Tablet 80 mg PO PM RF: 0 cyanocobalamin (vitamin B-12) [Vitamin B-12] 2,500 mcg Tablet, Sublingual 2,500 mcg SUBLINGUAL QAM RF: 0 clopidogrel [Plavix] 75 mg Tablet 75 mg PO QAM RF: 0 allopurinol 100 mg Tablet 100 mg PO BID PRN (Reason: swelling) RF: 0 baclofen 10 mg Tablet 10 mg PO TID RF: 0 folic acid 1 mg Tablet 1 mg PO QAM RF: 0 polyethylene glycol 3350 [Miralax] 17 gram/dose Powder 17 g PO BID RF: 0 fluoxetine 20 mg Capsule 20 mg PO QAM RF: 0 cyclosporine [Restasis] 0.05 % Dropperette 1 drp OPHTHALMIC (EYE) Q12H RF: 0 cholecalciferol (vitamin D3) [Vitamin D3] 25 mcg (1,000 unit) Tablet 25 mcg PO QAM RF: 0 colchicine 0.6 mg Capsule 0.6 mg PO DAILY PRN (Reason: gout flare up) RF: 0 aspirin 81 mg Capsule 81 mg PO QAM RF: 0 Discharge Orders: Discharge Order (Routine); Ordered 11/18/21 Ordered By: Rob Galvez Admission Data Admit Date/Time: 11/08/21 13:28 Attending Provider: Jonathan Sky Admit Provider: Jonathan Sky Primary Care Provider: Clarisse Santos Other Interventions: Discharge Summary Assessment (RN) Last Done: 11/18/21 15:25
== END 2021-11-18 16:14 | DRG 493 ==
LOC: ASU 05:12 → 3N 13:28